=== PATIENT | male | born 1980 | race Caucasian/White ===

== ENCOUNTER 2017-02-15 09:56 | Emergency (ER) | payer SELFPAY ==
[~2017-02-15] VITALS: Ht 180.3 cm; Wt 99.6 kg
[2017-02-15 09:57] VITALS: BP 141/83; PULSE 99; RESP 18; TEMP 97.9; O2SAT 99
[2017-02-15] MEDS ORDERED: BACT800T5 PO (10:13)
[2017-02-15] MEDS ORDERED: IBUP-1129 PO (10:13)
--- NOTE | 2017-02-15 10:13 | PD ---
HPI Chief Complaint: Skin Problem Time Seen by Provider: 10:10 Travel History International Travel<30 days: No Contact w/Intl Traveler<30days: No Traveled to known affect area: No History of Present Illness HPI 36-year-old male patient presents to the ER today, had a pimple that he popped on his anterior chest yesterday and it is getting more painful, red, swollen. He denies any fevers or other issues. He states it does hurt so badly. He has had a prior skin infection as well recently. Modifying Factors: None Associated Signs & Symptoms: Anterior chest pain, redness, swelling Risk Factors: None PFSH Social History Tobacco Use: No Allergies-Medications (Allergen,Severity, Reaction): Coded Allergies: Penicillins (Verified Allergy, Severe, hives, 02/15/17) latex (Verified Allergy, Severe, rash, 02/15/17) Review of Systems Except as stated in HPI: all other systems reviewed are Neg Physical Exam Narrative GENERAL: Well-developed middle age white male patient currently in mild distress. Awake and oriented 3. SKIN: Focused skin assessment warm/dry. There is a 3 cm area of erythema and tenderness and induration with no underlying fluctuance. There is a pustule with small amount of pus that is no longer draining. HEAD: Atraumatic. Normocephalic. EYES: Pupils equal and round. No scleral icterus. No injection or drainage. ENT: No nasal bleeding or discharge. Mucous membranes pink and moist. NECK: Trachea midline. No JVD. CARDIOVASCULAR: Regular rate and rhythm. No murmur appreciated. RESPIRATORY: No accessory muscle use. Clear to auscultation. Breath sounds equal bilaterally. GASTROINTESTINAL: Abdomen soft, non-tender, nondistended. Hepatic and splenic margins not palpable. MUSCULOSKELETAL: No obvious deformities. No clubbing. No cyanosis. No edema. NEUROLOGICAL: Awake and alert. No obvious cranial nerve deficits. Motor grossly within normal limits. Normal speech. PSYCHIATRIC: Appropriate mood and affect; insight and judgment normal. Data Data Last Documented VS Vital Signs Date Time Temp Pulse Resp B/P (MAP) Pulse Ox O2 Delivery O2 Flow Rate FiO2 02/15/17 09:57 97.9 99 18 141/83 (102) 99 Orders Orders Ibuprofen (Motrin) (02/15/17 10:15) [facility] Medical Decision Making Medical Screen Exam Complete: Yes Emergency Medical Condition: Yes Medical Record Reviewed: Yes Differential Diagnosis Cellulitis versus abscess Narrative Course I do not palpate any fluctuance at this time. My plan would be to put him on antibiotics and have him follow-up with primary care physician. Return for any worsening in redness, pain, swelling and as needed. The plan has been discussed with him and he states understanding. Diagnosis Primary Impression: Cellulitis of chest wall Med/Other Pt SpecificInfo: Prescription(s) given Scripts Sulfamethoxazole-Trimethoprim (Bactrim DS) 800-160 Mg Tab 1 TAB PO BID for Infection, #14 TAB 0 Refills Prov: Faviola Vides MD 02/15/17 Ibuprofen (Motrin Ib) 200 Mg Tablet 600 MG PO QID Y for PAIN SCALE 1 TO 10, #28 Prov: Faviola Vides MD 02/15/17 Disposition: 01 DISCHARGE HOME Condition: Stable Faviola Vides MD Feb 15, 2017 10:13
[2017-02-15] MEDS ORDERED: IBUPROFEN 600 MG TAB PO ONE (10:15)
== END 2017-02-15 10:30 | disposition home or self-care (01) ==
LOC: PHED 09:56
DX: L03.313 Cellulitis of chest wall (principal)
CPT/HCPCS: 99283

== ENCOUNTER 2017-02-18 21:58 | Emergency (ER) | payer SELFPAY ==
[~2017-02-18] VITALS: Ht 180.3 cm; Wt 102.4 kg
[~2017-02-18 21:58] MED LIST: BACT800T5 PO; IBUP-1129 PO
[2017-02-18 22:20] VITALS: BP 127/77; PULSE 101; RESP 16; TEMP 98.3; O2SAT 97
[2017-02-18] MEDS ORDERED: LIDOCAINE 2%/EPINEPHrine 1:100,000 30ML MDV INFIL ONE (23:15)
[2017-02-18] MEDS ORDERED: KETOROLAC TROMETHAMINE 30 MG/ML (IVP) VIAL IV PUSH ONE (23:15)
[2017-02-18] MEDS ORDERED: TETANUS/DIPHTHERIA TOXOID ADULT 0.5 ML VIAL IM ONE (23:15)
[2017-02-18] MEDS ORDERED: LIDOCAINE 2%/EPINEPHrine 1:100,000 50ML MDV NERV BLOCK ONE (23:15)
[2017-02-18] MEDS: VANCOMYCIN INJ 1,000 MG in SODIUM CHLOR 0.9% 250 ML INJ 250 ML IV ONE (23:15)
[2017-02-18] MEDS ORDERED: CLIN1CAP5 PO (23:44)
[2017-02-18] MEDS ORDERED: NORC5TAB PO (23:44)
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
[2017-02-19] MEDS: VANCOMYCIN INJ 1,000 MG in SODIUM CHLOR 0.9% 250 ML INJ 250 ML IV ONE (00:14)
[2017-02-19 01:30] VITALS: BP 154/87; PULSE 92; RESP 16; O2SAT 99
[2017-02-19 02:56] VITALS: BP 152/74
== END 2017-02-19 03:00 | disposition home or self-care (01) ==
LOC: PHED 21:58
DX: L02.213 Cutaneous abscess of chest wall (principal)
CPT/HCPCS: 10060; 86403; 87070; 87186; 90471; 90714; 96365; 96366; 96375; 99284; J1885; J3370; J7050; 87205